=== PATIENT | female | born 1985 | race Two or more races ===

== ENCOUNTER 2022-09-24 21:39 | Emergency (ER) | payer OTHER ==
[~2022-09-24] VITALS: Ht 165.1 cm; Wt 65.8 kg
== END 2022-09-25 01:38 | disposition home or self-care (01) ==
LOC: ER 21:39
PROVIDERS: Emergency Medicine
DX: R10.84 Generalized abdominal pain (principal); Z20.822 Contact with and (suspected) exposure to COVID-19

== ENCOUNTER 2023-04-03 22:29 | Emergency (ER) | payer OTHER ==
[~2023-04-03] VITALS: Ht 165.1 cm; Wt 73.0 kg
== END 2023-04-03 23:38 | disposition home or self-care (01) ==
LOC: ER → EDBD 22:59 → ER 23:38
DX: T19.2XXA Foreign body in vulva and vagina, initial encounter (principal); Z97.5 Presence of (intrauterine) contraceptive device; W44.8XXA Other foreign body entering into or through a natural orifice, initial encounter

== ENCOUNTER 2023-12-12 14:14 | Outpatient (CLI) | payer OTHER | END 2023-12-12 14:25 | disposition home or self-care (01) | LOC: MAMO-SONO 14:14 | PROVIDERS: ATTEND Obstetrics & Gynecology | DX: N60.11 Diffuse cystic mastopathy of right breast (principal); N60.12 Diffuse cystic mastopathy of left breast; Z12.31 Encounter for screening mammogram for malignant neoplasm of breast ==

== ENCOUNTER 2024-06-21 17:21 | Emergency (ER) | payer OTHER ==
[~2024-06-21] VITALS: Ht 165.1 cm; Wt 76.7 kg
[2024-06-21] MEDS ORDERED: HYOSCYAMINE0.125 M1 SL (17:27)
== END 2024-06-21 19:11 | disposition home or self-care (01) ==
LOC: ER 17:21
DX: L84 Corns and callosities (principal)